=== PATIENT | female | born 1990 | race Caucasian/White ===

== ENCOUNTER 2018-01-20 00:53 | Emergency (ER) | payer OTHER ==
[~2018-01-20] VITALS: Ht 157.5 cm; Wt 50.3 kg
[2018-01-20] MEDS ORDERED: PYRIDIUM DS200 MG PO (03:13)
[2018-01-20] MEDS ORDERED: CEFUROXIME500 MG PO (03:13)
== END 2018-01-20 03:19 | disposition home or self-care (01) ==
LOC: ER 00:53
DX: N39.0 Urinary tract infection, site not specified (principal)